=== PATIENT | male | born 1975 | race Caucasian/White ===

== ENCOUNTER 2017-02-27 22:44 | Emergency (ER) | payer OTHER ==
[~2017-02-27] VITALS: Ht 180.3 cm; Wt 77.1 kg
[2017-02-27] MEDS ORDERED: NAPROSYN500 MG (22:51)
[2017-02-27 23:39] LABS: ABSOLUTE NEUTROPHILS 10.7 thou/uL (1.4-8.2); BASOPHILS 0.5 % (0.0-2.0); EOSINOPHILS 1.8 % (0.0-3.0); HEMATOCRIT 40.3 % (42.0-52.0); HEMOGLOBIN 13.7 gm/dL (14.0-18.0); LYMPHOCYTES 13.4 % (24.0-44.0); MCH 30.1 pg (26.0-34.0); MCHC 33.9 g/dL (28.0-37.0); MCV 88.7 fL (80.0-100.0); MONOCYTES 7.8 % (1.0-8.0); PLATELET COUNT 341 thou/uL (150-400); POLYS 76.5 % (36.0-66.0); RBC 4.54 mil/uL (4.50-6.00); RDW 13.1 % (10.5-14.5)
[2017-02-27 23:45] LABS: CALCIUM 8.8 mg/dL (8.5-10.1); POTASSIUM 3.6 mmol/L (3.5-5.1)
[2017-02-27 23:47] LABS: MANUAL DIFF NO
[2017-02-28 01:30] VITALS: BP 143/89
== END 2017-02-28 01:30 | disposition left against medical advice (07) ==
LOC: ER 22:44
PROVIDERS: Physician Assistant
DX: L03.213 Periorbital cellulitis (principal); F17.210 Nicotine dependence, cigarettes, uncomplicated